=== PATIENT | female | born 1940 | race Caucasian/White ===

== ENCOUNTER 2017-01-19 08:31 | Day surgery (SDC) | payer MEDICARE, OTHER ==
[~2017-01-19 08:31] MED LIST: PROPOFOL INJ 200 MG/20 ML VIAL IV ONE
[2017-01-19 10:22] VITALS: BP 138/64
--- NOTE | 2017-01-19 12:46 | Operative Report ---
Operative Report DATE OF SURGERY: 01/19/17 Operative Report: The risks, benefits and alternatives of the procedure including risks of bleeding, perforation requiring surgery are explained to the patient detail and informed consent was obtained. Patient was taken back to the endoscopy suite and placed in the left, lateral decubital position. Timeout was called. Propofol medications administered. A rectal examination was done which did not reveal any masses, tears or fissures. An Olympus endoscope was inserted into the patient's rectum. The scope was then gradually advanced all the way to the cecum. The cecum was identified by the usual anatomical landmarks including the ileocecal valve as well as the appendiceal office. Photodocumentation is obtained. The scope was then sequentially pulled back via the rest segments of the colon including the ascending colon, hepatic flexure, transverse colon, splenic flexure, descending colon and finding to the rectosigmoid portions of the colon. Retroflexion maneuver was performed. PREOPERATIVE DIAGNOSIS: Heme positive stool. POSTOPERATIVE DIAGNOSIS: Colon polyp which is removed via snare polypectomy and retrieved. Noted in the descending colon. Internal hemorrhoids OPERATION: Colonoscopy with snare polypectomy SURGEON: YOSELIN GARCIA ANESTHESIA: LMAC TISSUE REMOVED OR ALTERED: Polyp is retrieved COMPLICATIONS: None. ESTIMATED BLOOD LOSS: None. INTRAOPERATIVE FINDINGS: No masses, AVMs, diverticulosis noted. PROCEDURE: Patient tolerated the procedure well. No immediate postprocedure complications are noted. Patient discharged in good condition. Discharge date 01/19/2017. Discharge diet: Regular. Discharge activity: Regular. 2-3 week follow-up to discuss findings. 5 year surveillance colonoscopy. Patient is instructed to call the office or proceed to the emergency room should there be any further problems or questions. We will wait on pathology.
== END 2017-01-19 10:15 | disposition home or self-care (01) ==
LOC: END 08:31
PROVIDERS: ATTEND Internal Medicine Gastroenterology
PROC: 0DBM8ZX Excision of Descending Colon, Via Natural or Artificial Opening Endoscopic, Diagnostic (ICD-10-PCS; principal; 2017-01-19 10:30)
DX: D12.4 Benign neoplasm of descending colon (principal); K64.8 Other hemorrhoids; D50.9 Iron deficiency anemia, unspecified; M19.90 Unspecified osteoarthritis, unspecified site; F17.210 Nicotine dependence, cigarettes, uncomplicated; Z79.899 Other long term (current) drug therapy
CPT/HCPCS: 45385; J2704; 810

== ENCOUNTER 2018-03-15 08:49 | Emergency (ER) | payer MEDICARE, OTHER ==
[2018-03-15] MEDS ORDERED: KETOROLAC TROMETHAMINE INJ/PF 30 MG/1 ML SDV IV ONE (09:20)
[2018-03-15] MEDS ORDERED: PROCHLORPERAZINE EDISYLATE INJ 10 MG/2 ML VIAL IV ONE (09:20)
[2018-03-15] MEDS ORDERED: FENTANYL CITRATE INJ/PF 100 MCG/2 ML AMPUL IV ONE ×2 (09:20→11:21)
--- NOTE | 2018-03-15 09:27 | ER Document Report ---
ED Extremity Problem, Upper - General Chief Complaint: Arm Injury Stated Complaint: FALL/WRIST PAIN Time Seen by Provider: 03/15/18 09:20 Mode of Arrival: Ambulatory Information source: Patient Notes: Chief complaint: Left wrist pain History of complain:( obtained from----patient) 78 years old female while trying to get off the truck slipped and fell and landed on her left wrist and since then having pain and deformity over the wrist therefore present to the ED. Denies complete fall. Denies any head injury or loss of consciousness. Denies any pain over the left elbow or left shoulder. Denies any injury or pain over the right upper limb. Denies any pain over the lower limbs. Denies any headache neck pain neck stiffness. Denies any pain or discomfort over the thoracolumbar region. Onset: Sudden Duration: Just prior to arrival Severity: Severe Quality: Sharp Context: As described below Exacerbating factor and relieving factors: Any movement of the wrist REVIEW OF SYSTEMS: CONSTITUTIONAL : Denies fever, chills, or sweats. Denies recent illness. EENT: Denies eye, ear, throat, or mouth pain or symptoms. Denies nasal or sinus congestion or discharge. Denies throat, tongue, or mouth swelling or difficulty swallowing. CARDIOVASCULAR: Denies chest pain. Denies palpitations or racing or irregular heart beat. Denies ankle edema. RESPIRATORY: Denies cough, cold, or chest congestion. Denies shortness of breath, difficulty breathing, or wheezing. GASTROINTESTINAL: Denies distention. Denies nausea, vomiting, or diarrhea. Denies blood in vomitus, stools, or per rectum. Denies black, tarry stools. Denies constipation. GENITOURINARY: Denies difficulty urinating, painful urination, burning, frequency, blood in urine, or discharge. FEMALE GENITOURINARY: Denies vaginal bleeding, heavy or abnormal periods, irregular periods. Denies vaginal discharge or odor. MUSCULOSKELETAL: As described above HEMATOLOGIC : Denies easy bruising or bleeding. LYMPHATIC: Denies swollen, enlarged glands. NEUROLOGICAL: Denies confusion or altered mental status. Denies passing out or loss of consciousness. Denies dizziness or lightheadedness. Denies headache. Denies weakness or paralysis or loss of use of either side. Denies problems with gait or speech. Denies sensory loss, numbness, or tingling. Denies seizures. PSYCHIATRIC: Denies anxiety or stress. Denies depression, suicidal ideation, or homicidal ideation. ALL OTHER SYSTEMS REVIEWED AND NEGATIVE. PHYSICAL EXAMINATION: GENERAL: Well-appearing, well-nourished and in no acute distress. HEAD: Atraumatic, normocephalic. EYES: Pupils equal round and reactive to light, extraocular movements intact, conjunctiva are normal. ENT: Nares patent, oropharynx clear without exudates. Moist mucous membranes. NECK: Normal range of motion, supple without lymphadenopathy LUNGS: Breath sounds clear to auscultation bilaterally and equal. No wheezes rales or rhonchi. HEART: Regular rate and rhythm without murmurs ABDOMEN: Soft, nontender, nondistended abdomen. No guarding, no rebound. No masses appreciated. Examination of genitals-deferred Musculoskeletal: Left wrist-deformed, swelling, tender. Neurovascular function distally within normal limit Left hand no obvious injury [id number] to flex and extend with pain. Due to the wrist injury Left elbow-no injuries noted Left shoulder no injury noted- Right upper limb no injury- Right and left hip-able to flex and extend without any discomfort. NEUROLOGICAL: Cranial nerves grossly intact. Normal speech, normal gait. Normal sensory, motor exams PSYCH: Normal mood, normal affect. SKIN: Warm, Dry, normal turgor, no rashes or lesions noted. Dictation was performed using [employer] voice recognition software TRAVEL OUTSIDE OF THE [place] IN LAST 30 DAYS: No - HPI Notes: Dictated - Related Data Allergies/Adverse Reactions: No Known Allergies Allergy (Verified 01/19/17 09:01) Past Medical History - Social History Smoking Status: Never Smoker Cigarette use (# per day): No Chew tobacco use (# tins/day): No Frequency of alcohol use: Rare Drug Abuse: None Lives with: Family Family History: Reviewed & Not Pertinent - Past Medical History Cardiac Medical History: Denies: Hx Coronary Artery Disease, Hx Heart Attack, Hx Hypertension Pulmonary Medical History: Denies: Hx Asthma, Hx Bronchitis, Hx COPD, Hx Pneumonia Neurological Medical History: Denies: Hx Cerebrovascular Accident, Hx Seizures Musculoskeletal Medical History: Reports Hx Arthritis - POLYMYALGIA - Immunizations Hx Diphtheria, Pertussis, Tetanus Vaccination: No Review of Systems - Review of Systems Notes: Dictated Physical Exam - Vital signs Vitals: Temp Pulse Resp BP Pulse Ox 98.5 F 56 L 20 148/64 H 100 03/15/18 08:53 03/15/18 08:53 03/15/18 08:53 03/15/18 08:53 03/15/18 08:53 - Notes Notes: Dictated Course - Vital Signs Vital signs: Temp Pulse Resp BP Pulse Ox 98.5 F 56 L 22 H 145/75 H 100 03/15/18 08:53 03/15/18 08:53 03/15/18 11:36 03/15/18 11:36 03/15/18 11:36 Procedures - Conscious Sedation Conscious sedation Time started: 11:05 Time completed: 11:20 Consent obtained: Yes Indication: Fracture dislocation of left wrist Last meal: Last night Prior complications: Procedural sedation ASA Classification: Choose one classification Normal healthy pt.: P1. - ASA Classification Airway Evaluation: Normal anatomy Mallampati Classification: Class 1 Used during procedure: Suction available, IV access obtained, Pulse ox on pt., compliance monitor on pt. Medications administered: Diprivan Reversal agents: None I personally performed/intraservice time: Sedation, Procedure, 30 min or less Complications: Yes Notes: Patient pulse oximeter dropped briefly, put on 100% nonrebreather for 2 minutes , Pulsoxymeter came back to normal and consciousness regained. - Immobilization Left Wrist Time completed: 11:15 Pre-Proc Neuro Vasc Exam: Normal Immobilizer type: Long arm posterior Performed by: Provider Post-Proc Neuro Vasc Exam: Normal Alignment checked and good: Yes Notes: 03/15/18 12:02 Postreduction x-ray indicated good alignment of the both ulna and radius - Joint Reduction/Fracture Care Left Distal Wrist Time completed: 11:10 Consent obtained: Yes Conscious sedation: Yes Pre-procedure NV exam: Yes Fracture: Closed Manipulation comment: Traction/extension and flexion Post-procedure NV exam: Yes Post-reduction x-ray: Joint reduced Reduction attempts: 1 Complications: No Discharge - Discharge Clinical Impression: Fracture dislocation of wrist Qualifiers: Encounter type: initial encounter Fracture type: closed Laterality: left Qualified Code(s): S62.102A - Fracture of unspecified carpal bone, left wrist, initial encounter for closed fracture Condition: Fair Disposition: HOME, SELF-CARE Instructions: Fractured Radius ([facility]) Additional Instructions: Follow-up with orthopedic within a day or 2, apply ice Prescriptions: Naproxen 500 mg PO BID #30 tablet Ondansetron [Zofran Odt 4 mg Tablet] 1 - 2 tab PO Q4H PRN #15 tab.rapdis PRN Reason: For Nausea/Vomiting Oxycodone HCl/Acetaminophen [Percocet 5-325 mg Tablet] 1 - 2 tab PO Q4H PRN #25 tablet PRN Reason: Referrals: LEXY OLIVA MD [NO LOCAL MD] - Follow up as needed
[2018-03-15] MEDS ORDERED: HYDROMORPHONE HCL INJ/PF 2 MG/ML AMPULE IV ONE (09:37)
--- NOTE | 2018-03-15 10:21 | RADIOLOGY REPORT (SQ) ---
EXAM DESCRIPTION: WRIST LEFT 3 VIEWS COMPLETED DATE/TIME: 03/15/2018 9:49 am REASON FOR STUDY: deformity COMPARISON: None. NUMBER OF VIEWS: Two views TECHNIQUE: AP and lateral radiographic images acquired of the left wrist. LIMITATIONS: None. FINDINGS: MINERALIZATION: Normal. BONES: There is a comminuted impaction type fracture of the distal ulna and radius with posterior ang ulation. Posterior angulation. SOFT TISSUES: There is associated soft tissue swelling. OTHER: No other significant finding. IMPRESSION: Fractures of the distal ulna and radius as noted above. TECHNICAL DOCUMENTATION: JOB ID: [id number] [employer]- All Rights Reserved Reading location - IP/workstation name: [email or web address]
[2018-03-15] MEDS ORDERED: PROPOFOL 1,000 MG/100 ML INFUS..BTL IV ONE (10:55)
[2018-03-15] MEDS ORDERED: PROPOFOL INJ 200 MG/20 ML VIAL IV ONE (11:00)
[2018-03-15] MEDS ORDERED: IPRATROPIUM/ALBUTEROL 0.5-2.5 MG/3 ML AMPUL NEB ONE (11:21)
[2018-03-15] MEDS ORDERED: ONDANSETRON 4 MG TAB.RAPDIS PO ONE (11:58)
--- NOTE | 2018-03-15 11:58 | RADIOLOGY REPORT (SQ) ---
EXAM DESCRIPTION: WRIST LEFT 2 VIEWS COMPLETED DATE/TIME: 03/15/2018 11:40 am REASON FOR STUDY: Postreduction COMPARISON: Pre reduction examination dated 03/15/2018 NUMBER OF VIEWS: Three views. TECHNIQUE: AP, lateral, and oblique radiographic images acquired of the left wrist. LIMITATIONS: None. FINDINGS: MINERALIZATION: Normal. BONES: Interval placement of cast since the prior examination. Position and alignment appear to be anatomic involving the fractures of the distal radius and ulna. SOFT TISSUES: No soft tissue swelling. No foreign body. OTHER: No other significant finding. IMPRESSION: 1 Interval placement of cast, since the pre reduction examination performed earlier on t he same date. Position and alignment of the distal radius and ulna fractures appears anatomic. TECHNICAL DOCUMENTATION: JOB ID: [id number] [employer]- All Rights Reserved Reading location - IP/workstation name: [email or web address]
[2018-03-15 12:35] VITALS: BP 138/85
== END 2018-03-15 12:30 | disposition home or self-care (01) ==
LOC: ER 08:49
PROC: 0PSNXZZ Reposition Left Carpal, External Approach (ICD-10-PCS; principal; 2018-03-15)
DX: S62.102A Fracture of unspecified carpal bone, left wrist, initial encounter for closed fracture (principal); M25.532 Pain in left wrist; W01.0XXA Fall on same level from slipping, tripping and stumbling without subsequent striking against object, initial encounter
CPT/HCPCS: 94640; 99283; 96374; 96375; 73100; 73110; 25635; A9270 ×2; J3010; J1885; J1170; J2704; J7620; S0119

== ENCOUNTER 2020-05-30 08:19 | Day surgery (SDC) | payer MEDICARE, OTHER ==
[~2020-05-30 08:19] MED LIST changes: +CEFAZOLIN 2 GM/D5W RTU 2 GM/50 ML RTUPB IV ONE; +CEFAZOLIN 2 GM/D5W RTU 2 GM/50 ML RTUPB IV PRN; -PROPOFOL INJ 200 MG/20 ML VIAL IV ONE
[2020-05-30] MEDS ORDERED: DEXAMETHASONE SOD PHOSPHATE INJ 4 MG/1 ML VIAL ONE ×2 (09:14→10:14)
[2020-05-30] MEDS ORDERED: ONDANSETRON HCL INJ/PF 4 MG/2 ML SDV ONE ×2 (09:14→10:14)
[2020-05-30] MEDS ORDERED: FENTANYL CITRATE INJ/PF 100 MCG/2 ML AMPUL ONE (09:14)
[2020-05-30] MEDS ORDERED: PROPOFOL INJ 200 MG/20 ML VIAL IV ONE (09:14)
[2020-05-30] MEDS ORDERED: SUCCINYLCHOLINE CHLORIDE INJ 200 MG/10 ML VIAL ONE ×2 (10:13→10:14)
[2020-05-30] MEDS ORDERED: GLYCOPYRROLATE 1 MG/5 ML VIAL ONE (10:14)
[2020-05-30] MEDS ORDERED: ROCURONIUM BROMIDE INJ 50 MG/5 ML VIAL IV ONE (10:14)
[2020-05-30] MEDS ORDERED: PHENYLEPHRINE HCL INJ/PF 10 MG/1 ML SDV ONE (10:14)
[2020-05-30] MEDS ORDERED: DEXAMETHASONE SOD PHOS INJ 10 MG/1 ML VIAL ONE ×2 (10:15→12:21)
[2020-05-30] MEDS ORDERED: LIDOCAINE 1%/EPINEPHRINE INJ 20 ML VIAL ONE (10:17)
[2020-05-30] MEDS ORDERED: OXYMETAZOLINE HCL 0.05% NASAL SPRAY 15 ML BOTTLE ONE (10:17)
[2020-05-30] MEDS ORDERED: LIDOCAINE 2%/EPINEPHRINE INJ 1.7 ML CARTRIDGE ONE (10:17)
[2020-05-30] MEDS ORDERED: EPINEPHRINE INJ/PF 1 MG/1 ML AMPULE ONE (10:17)
[2020-05-30] MEDS ORDERED: COCAINE HCL 4% TOPICAL SOLN 4 ML ONE (10:49)
[2020-05-30] MEDS ORDERED: ONDANSETRON HCL INJ/PF 4 MG/2 ML SDV IV PRN ×2 (10:59→12:29)
[2020-05-30] MEDS ORDERED: MEPERIDINE HCL/PF INJ 25 MG/1 ML DISP.SYRIN IV PRN (10:59)
[2020-05-30] MEDS ORDERED: PROMETHAZINE HCL INJ 25 MG/1 ML VIAL IV PRN (10:59)
[2020-05-30] MEDS ORDERED: DIPHENHYDRAMINE HCL 50 MG/ML VIAL IV PRN (10:59)
[2020-05-30] MEDS ORDERED: FENTANYL CITRATE INJ/PF 100 MCG/2 ML AMPUL IV PRN ×3 (10:59)
[2020-05-30] MEDS ORDERED: HYDROCODONE/ACETAMINOPHEN 5-325 MG TABLET PO PRN (12:29)
--- NOTE | 2020-05-30 12:36 | Operative Report ---
Operative Report[facility] Operative Report: Date: 30 May 2020 History: 80-year-old female presented to the otolaryngology clinic with hoars eness. 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 Patient is a longtime smoker. Presents today for a MicroDirect laryngoscopy with excisional biopsy left true vocal cord mass. Informed consent was obtained from the patient. Preoperative Diagnosis: 1. Left true vocal cord mass 2. History of smoking 3. Dysphonia Postoperative Diagnosis: Same as above Procedure: 1. Micro Direct Laryngoscopy 2. Excisional biopsy left true vocal cord ulceration Surgeon: Saad Estrada MD, FACS, [facility] [place]: LOS Description of the procedure: After receiving informed consent, the patient was brought to the operating room and placed supine on the operating room table. After successful induction and intubation by anesthesia, the operating room table was turned 90. A head rape was placed. The patient was placed in a sniffing position. A mouthguard was placed to protect the dentition. An operating laryngoscope was placed atraumatically into the laryngeal inlet. The laryngoscope was then placed into suspension. The microscope was brought into the field and the larynx was visualized. The true vocal cords were visualized. Grade 2 Janet's edema noted on the right true vocal cord. No evidence of leukoplakia or ulcerations. The left true vocal cord was erythematous with an ulceration noted involving the posterior portion of the true vocal cord. There was also grade 2 Janet's edema noted on the left true vocal cord. Cottonoids soaked in 4% cocaine were placed into the laryngeal inlet to cover the vocal cords, prior to initiation of the procedure. A sickle knife was used to make an incision along the superior margin of the true vocal cord. An elevator was used to separate the mucosal layer from the underlying vocal ligament. Unable to separate the overlying mucosa with the underlying vocal ligament and the area of the ulceration. Using alligator forceps and microscissors an excisional biopsy was performed on this ulcerative area. Several other biopsies were taken anterior to the ulceration. A cottonoid soaked in 4% cocaine was placed over the excision site. Hemostasis was obtained. The patient was taken out of suspension and the laryngoscope removed. The patient was then given back to anesthesia who successfully extubated the patient without any complications. Estimated blood loss: Minimal Fluids: 800 mL The patient tolerated the procedure well without any complications. The patient was then transported to the post anesthesia care unit in stable condition with spontaneous respirations.
[2020-05-30] MEDS ORDERED: HYDROCODONE/ACETAMINOPHEN 5-325 MG TABLET ONE (13:37)
[2020-05-30 14:54] VITALS: BP 131/72
--- NOTE | 2020-05-30 16:19 | EKG REPORT ---
SEVERITY:- ABNORMAL ECG - SINUS RHYTHM LEFT VENTRICULAR HYPERTROPHY ANTERIOR Q WAVES, POSSIBLY DUE TO LVH BORDERLINE T ABNORMALITIES, INFERIOR LEADS : Confirmed by: Mitul Barragan MD 30-May-2020 16:18:27
== END 2020-05-30 14:45 | disposition home or self-care (01) ==
LOC: OROUT 08:19
PROVIDERS: ATTEND Otolaryngology
DX: J38.3 Other diseases of vocal cords (principal); I10 Essential (primary) hypertension; F17.210 Nicotine dependence, cigarettes, uncomplicated; Z03.818 Encounter for observation for suspected exposure to other biological agents ruled out
CPT/HCPCS: 31536; 88305 ×2; 93005; 93010; U0003; C9046; J3010; A9270 ×2; J2405; J2704; J1100; J0690; C9803; 87635; J0171; J0330; J2370; J3490

== ENCOUNTER 2020-06-15 06:50 | Day surgery (SDC) | payer MEDICARE, OTHER ==
[~2020-06-15 06:50] MED LIST changes: -CEFAZOLIN 2 GM/D5W RTU 2 GM/50 ML RTUPB IV ONE; +DEXAMETHASONE SOD PHOSPHATE INJ 4 MG/1 ML VIAL ONE; +FENTANYL CITRATE INJ/PF 100 MCG/2 ML AMPUL ONE; +MIDAZOLAM 2 MG/2 ML INJ ONE; +ONDANSETRON HCL INJ/PF 4 MG/2 ML SDV ONE; +PROPOFOL INJ 200 MG/20 ML VIAL IV ONE; +SUGAMMADEX SODIUM 200 MG/2 ML SDV IV ONE
[2020-06-15] MEDS ORDERED: CEFAZOLIN 2 GM/D5W RTU 2 GM/50 ML RTUPB IV ONE (08:08)
[2020-06-15] MEDS ORDERED: LIDOCAINE 1%/EPINEPHRINE INJ 20 ML VIAL ONE (08:18)
[2020-06-15] MEDS ORDERED: OXYMETAZOLINE HCL 0.05% NASAL SPRAY 15 ML BOTTLE ONE (08:18)
[2020-06-15] MEDS ORDERED: BACITRACIN ZINC OINTMENT 15 GM ONE (08:18)
[2020-06-15] MEDS ORDERED: COCAINE HCL 4% TOPICAL SOLN 4 ML ONE (08:59)
[2020-06-15] MEDS ORDERED: DEXAMETHASONE SOD PHOSPHATE INJ 4 MG/1 ML VIAL ONE (09:04)
[2020-06-15] MEDS ORDERED: DIPHENHYDRAMINE HCL 50 MG/ML VIAL IV PRN (09:27)
[2020-06-15] MEDS ORDERED: MEPERIDINE HCL/PF INJ 25 MG/1 ML DISP.SYRIN IV PRN (09:27)
[2020-06-15] MEDS ORDERED: FENTANYL CITRATE INJ/PF 100 MCG/2 ML AMPUL IV PRN ×3 (09:27)
[2020-06-15] MEDS ORDERED: LABETALOL HCL INJ 20 MG/4 ML DISP.SYRIN IV PRN (09:27)
[2020-06-15] MEDS ORDERED: PROMETHAZINE HCL INJ 25 MG/1 ML VIAL IV PRN (09:27)
[2020-06-15] MEDS ORDERED: DEXAMETHASONE SOD PHOS INJ 10 MG/1 ML VIAL ONE (10:20)
--- NOTE | 2020-06-15 10:25 | Operative Report ---
Operative Report[facility] Operative Report: Date: 15 June 2020 History: 80-year-old female underwent a previous [facility]Direct laryngoscopy with biopsy of left true vocal cord lesion on 30 May 2020. 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 With recommendations for rebiopsy. Patient presents for a direct laryngoscopy with a rebiopsy of the left true vocal cord lesion informed consent was obtained from the patient. Preoperative Diagnosis: 1. 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 Left true vocal cord mass, suspicious for invasive squamous cell carcinoma 3. 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 Micro Direct Laryngoscopy 2. Excisional biopsy left true vocal cord mass. Surgeon: Saad Estrada MD, FACS, [facility] [place]: LOS Description of the procedure: After receiving informed consent, the patient was brought to the operating room and placed supine on the operating room table. After successful induction and intubation by anesthesia, the operating room table was turned 90. A head rape was placed. The patient was placed in a sniffing position. A mouthguard was placed to protect the dentition. An operating laryngoscope was placed atraumatically into the laryngeal inlet. The laryngoscope was then placed into suspension. The microscope was brought into the field and the larynx was visualized. The left true vocal cord mass was noted to occupy the anterior two thirds of the left true cord. Cottonoids soaked in 4% cocaine were placed into the laryngeal inlet to cover the vocal cords, prior to initiation of the procedure. The cottonoid was removed and an excisional biopsy of the left true vocal cord mass was performed using microforceps and microscissors. Hemostasis was obtained using both 4% cocaine and Afrin-soaked cottonoids. Grade 2 Janet's edema was noted involving the right true vocal cord. A cottonoid soaked in 4% cocaine was placed over the excision site. Hemostasis was obtained. The patient was taken out of suspension and the laryngoscope removed. Cottonoid was removed during extubation. The patient was then given back to anesthesia who successfully extubated the patient without any complications. Estimated blood loss: 5 mL Fluids: 800 mL The patient tolerated the procedure well without any complications. The patient was then transported to the post anesthesia care unit in stable condition with spontaneous respirations.
[2020-06-15] MEDS ORDERED: LABETALOL HCL INJ 20 MG/4 ML DISP.SYRIN IV ONE (10:31)
[2020-06-15] MEDS ORDERED: FENTANYL CITRATE INJ/PF 100 MCG/2 ML AMPUL ONE (10:37)
[2020-06-15] MEDS ORDERED: HYDROCODONE/ACETAMINOPHEN 5-325 MG TABLET PO PRN (10:51)
[2020-06-15] MEDS ORDERED: ONDANSETRON HCL INJ/PF 4 MG/2 ML SDV IV PRN (10:52)
[2020-06-15] MEDS ORDERED: DEXAMETHASONE SOD PHOSPHATE INJ 4 MG/1 ML VIAL NEB PRN (11:15)
[2020-06-15] MEDS ORDERED: HYDROCODONE/ACETAMINOPHEN 5-325 MG TABLET ONE (11:22)
[2020-06-15 17:05] VITALS: BP 129/61
== END 2020-06-15 12:09 | disposition home or self-care (01) ==
LOC: OROUT 06:50
PROVIDERS: ATTEND Otolaryngology
DX: C32.0 Malignant neoplasm of glottis (principal); I10 Essential (primary) hypertension; F17.200 Nicotine dependence, unspecified, uncomplicated; K08.109 Complete loss of teeth, unspecified cause, unspecified class; Z03.818 Encounter for observation for suspected exposure to other biological agents ruled out; Z79.899 Other long term (current) drug therapy
CPT/HCPCS: 88305 ×2; 31536; U0003; J2250; A9270 ×3; C9046; J1100 ×2; J3010; J3490 ×2; J2405; J2704; J0690; C9803; 320; 87635

== ENCOUNTER → 2020-06-28 | Outpatient (CLI) | payer MEDICARE, OTHER ==
--- NOTE | 2020-06-28 11:22 | WOMENS IMAGING REPORT ---
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 TECHNIQUE: Dual-Energy X-ray Absorptiometry (DEXA) of the AP Spine and Hip. LIMITATIONS: None. FINDINGS: LUMBAR SPINE: The bone mineral density (BMD) measured from L1-L4 in the AP projection correlates with a T-score of -1.4, which is osteopenia as defined by the World Health Organization. BMD Change vs Baseline: N/A HIP: The bone mineral density (BMD) measured in the left hip correlates with a T-score of 0.6, which is no rmal as defined by the World Health Organization. BMD Change vs Baseline: N/A 10 year Fracture Risk Assessment: Major Osteoporotic Fracture: 6.8% Hip Fracture: 1.0% IMPRESSION: 1. LUMBAR SPINE WHO CLASSIFICATION: OSTEOPENIA. 2. HIP WHO CLASSIFICATION: NORMAL. OVERALL ASSESSMENT: WHO CLASSIFICATION: OSTEOPENIA. COMMENT: The World Health Organization defines low BMD as follows: T-score: Normal: At or above -1.0 Osteopenia: Between -1.0 and -2.5 Osteoporosis: At or below -2.5 without fractures Established osteoporosis: At or below -2.5 with fractures In general, you may wish to consider: Diagnosis Treatment Follow-up DEXA Normal BMD Prevention 2-3 years Osteopenia Prevention/Therapy 1-2 years Osteoporosis Therapy Yearly TECHNICAL DOCUMENTATION: JOB ID: [id number] 2010 [employer]- All Rights Reserved Reading location - IP/workstation name: [email or web address]
--- NOTE | 2020-06-28 16:50 | RADIOLOGY REPORT (SQ) ---
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 TECHNIQUE: Post IV contrasted scanning from skull base through lung apices with review of bone, soft tissue and lung windows. Reconstructed coronal and sagittal MPR images reviewed. All images stored on PACS. All CT scanners at this facility use dose modulation, iterative reconstruction, and/or weight based d osing when appropriate to reduce radiation dose to as low as reasonably achievable (ALARA). [facility]: Dose Right [facility]: CareDose [facility]: Dose Right [facility]: Teradose 4D [facility]: 0xdata CONTRAST TYPE AND DOSE: contrast/concentration: Isovue 350.00 mmol/ml; Total Contrast Delivered: 75. 0 ml; Total Saline Delivered: 40.0 ml RENAL FUNCTION: Creatinine 0.7 RADIATION DOSE: 22 mGy LIMITATIONS: None. FINDINGS: SKULL BASE: Inferior brain parenchyma unremarkable MAJOR SALIVARY GLANDS: No solid or cystic masses. No inflammatory changes. LYMPHADENOPATHY: No adenopathy. MUCOSAL MASSES OR ASYMMETRY: No mucosal masses or asymmetry. LARYNX/CORDS: Minimal effacement of the left piriform recess is seen on axial images 75-79. Meningea l structures are otherwise unremarkable VASCULAR STRUCTURES: The major vessels are patent. LUNG APICES: Clear. BONES: Diffuse degenerative change cervical spine with multilevel foraminal narrowing THYROID: Normal size. 1 cm right lower pole thyroid nodule. Recommend follow-up ultrasound PARANASAL SINUSES: Clear. OTHER: No other significant finding. IMPRESSION: Minimal effacement of the left piriform recesses in the supraglottic larynx. 1 cm right lower pole thyroid nodule for which dedicated thyroid ultrasound is recommended for follow up. TECHNICAL DOCUMENTATION: JOB ID: [id number] Quality ID # [id number]: Final reports with documentation of one or more dose reduction techniques (e.g., Au tomated exposure control, adjustment of the mA and/or kV according to patient size, use of iterative reconstruction technique) 2010 [employer]- All Rights Reserved Reading location - IP/workstation name: [email or web address]
== END ==
LOC: RAD 07:34
PROVIDERS: ATTEND Internal Medicine
DX: C32.0 Malignant neoplasm of glottis (principal); M81.0 Age-related osteoporosis without current pathological fracture; E04.1 Nontoxic single thyroid nodule
CPT/HCPCS: 70491; 77080; 82565

== ENCOUNTER → 2020-07-03 | Outpatient (CLI) | payer MEDICARE, OTHER ==
--- NOTE | 2020-07-03 13:13 | RADIOLOGY REPORT (SQ) ---
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 Initial staging. 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 COMPARISON: CT soft tissue neck, 06/28/2020. CT abdomen and pelvis, 05/02/2013 RADIONUCLIDE AND DOSE: 10.8 mCi F18 FDG The route of agent administration: Intravenous FASTING BLOOD SUGAR: 102 mg/dl CONTRAST TYPE AND DOSE: No CT contrast given. TECHNIQUE: Blood glucose level was verified. Above dose of FDG was injected intravenously. 2-D seg mented attenuation correction images were obtained from the base of the skull to the midthighs. Nonc ontrast CT images were obtained for attenuation correction and fusion with emission images. CT image s were performed without oral or intravenous contrast and are not sensitive for parenchymal lesions. A series of overlapping emission PET images were obtained. Images reviewed and manipulated at indep [employer] work station by the radiologist. Images stored on PACS. LIMITATIONS: None. FINDINGS: HEAD AND NECK: No areas of abnormal metabolic activity in the soft tissues of the head and neck. CHEST: No areas of abnormal metabolic activity in the chest. ABDOMEN AND PELVIS: Interval increase in size of a solid 3.9 x 3.1 cm left midpole medial mass, previ ously 1.8 x 1.5 cm in 2013. This is minimally metabolically active with SUV 4.0. No other areas of abnormal hypermetabolic activity. Expected physiologic activity is present in the genitourinary syst em and bowel. Background hepatic activity SUV 3.1. PROXIMAL LOWER EXTREMITIES: No areas of abnormal metabolic activity in the soft tissues of the lower extremities. BONES: No abnormal metabolic activity in the visualized skeleton. ADDITIONAL CT FINDINGS: No suspicious pulmonary nodules. Moderate cardiomegaly. Benign hepatic cyst s unchanged from prior. OTHER: No other significant findings. IMPRESSION: 1. No hypermetabolic activity at the larynx. No evidence of metastatic disease. 2. Interval increase in size of a solid mass in the midpole left kidney with mild hypermetabolic acti vity since previous examination in 2013, highly suggestive of renal cell carcinoma. No evidence of m etastatic disease or local invasion. TECHNICAL DOCUMENTATION: JOB ID: [id number] [employer]- All Rights Reserved Reading location - IP/workstation name: [email or web address]
== END ==
LOC: RAD 07:49
PROVIDERS: ATTEND Internal Medicine
DX: C32.0 Malignant neoplasm of glottis (principal)
CPT/HCPCS: 78815; A9552